=== PATIENT | male | born 1985 | race Hispanic/Latino ===

== ENCOUNTER 2023-06-03 14:50 | Emergency (ER) | payer SELFPAY ==
[2023-06-03 14:51] VITALS: BP 173/117; PULSE 95; RESP 16; TEMP 36.4; O2SAT 99; BMI 32.3
--- NOTE | 2023-06-03 17:01 | EDS_ITS ---
HPI History of Present Illness Chief Complaint: Rash Narrative Narrative: 38-year-old male presenting with rash on the back. He was told this was eczema previously. He was seen at in [place] where he lives. He states he works at the local [employer] and noticed the last couple days he had some itching and rash that has been worsened after he finishes steroids given to him a couple of weeks ago. Patient does admit that he scratches at the back area where his rashes secondary to it itching a lot. He states is starting to hurt from scratching it so much. Denies any systemic signs or symptoms. He has not followed up with dermatology. PFSH PFS Home Medications doxycycline monohydrate 100 mg capsule 100 mg PO BID #20 CAPSULES 06/03/23 [Rx Last Taken Unknown] prednisone 10 mg tablet 10 mg PO UD #33 tabs 06/03/23 [Rx Last Taken Unknown] Allergy/AdvReac Type Severity Reaction Status Date / Time No Known Allergies Allergy Verified 06/03/23 14:53 Social History Smoking Status: Never smoker ROS ROS ED Constitutional Constitutional ED: Denies chills, fever(s) or sweats Eyes Eyes: Denies blurry vision or change in vision ENT ENT ED: Denies ear pain or sore throat Cardiovascular Cardiovascular: Denies chest pain, palpitations or racing heartbeat Respiratory/Chest Respiratory/Chest: Denies cough, dyspnea or sputum Gastrointestinal Gastrointestinal: Denies abdominal pain, constipation, diarrhea, nausea or vomiting Genitourinary Genitourinary ED: Denies dysuria, hematuria or urinary frequency Musculoskeletal Musculoskeletal: Denies arthralgias, myalgias or neck pain Integumentary Reports Abrasions and rash; Denies abscess Neurologic Neurologic: Denies headache(s), paresthesias or weakness Psychiatric Psychiatric: Denies anxiety, depression, suicidal ideation or suicidal thoughts Endocrine Endocrinology: Denies polydipsia or polyuria EXAM Physical Exam Const Vital Signs: 06/03/23 14:51 Temperature 97.5 F L Temperature Source Temporal Pulse Rate 95 Respiratory Rate 16 Blood Pressure 173/117 H Blood Pressure Mean 135 Pulse Ox 99 Oxygen Delivery Method Room Air Positive well nourished General Appearance ED: NAD HEENT Reports moist mucous membranes Eyes PERRL and EOMs intact bilaterally Chest Wall inspection of chest normal Resp normal respiratory effort Cardio regular rate and regular rhythm Neuro oriented x3 and CN's II-XII intact bilaterally Sensorium / Orientation: alert Motor Exam: strength 5/5 throughout Psych mental status grossly normal Skin Skin Narrative: Nonspecific maculopapular rash noted to the back mostly on the upper back. There are excoriations consistent with his history of scratching. No crepitance. Drainage. MDM MDM MDM Narrative Medical decision making narrative: Presenting with rash. He was told this was eczema and after a burst of steroids recently he felt better but now he states his rash is coming back. Patient states that he thinks he needs more steroids. He has not had a dermatology follow-up. He states that his back is hurting worse. When I look at his back there is a lot of excoriations all over the maculopapular areas on the upper back. It is possible these could be secondarily infected although I do not see any obvious drainage and I do not feel any crepitance. Given the platelets the patient be started on prednisone and antibiotics. He is counseled on wound care. I given dermatology follow-up. Return precautions were discussed. Impression: 1. Atopic dermatitis 2. Cellulitis Discharge Plan Triage Chief Complaint: Rash ED Provider: Jan Segura Dx/Rx/DC Orders Instructions: ED Atopic Dermatitis (Adult) Prescriptions: New prednisone 10 mg tablet 10 mg PO UD Qty: 33 0RF Rx Instructions: Take 4 tablets daily for 3 days, then 3 daily for 3 days, then 2 daily for 3 days, then 1 a day for 3 days then 1 QOD for 3 doses. doxycycline monohydrate 100 mg capsule 100 mg PO BID Qty: 20 0RF Primary Care Provider: Care Physician,No Primary Referrals: Jameson Olivier MD [Med Staff - Project Management Analyst] - 3-5 Days Care Physician,No Primary [Primary Care Provider] - Disposition Disposition: Home, Self Care
[2023-06-03] MEDS: Doxycycline 100 MG CAPSULE PO (17:32)
[2023-06-03] MEDS: predniSONE 20 MG Tablet 60 MG PO (17:32)
== END 2023-06-03 17:34 | disposition home or self-care (01) ==
PROVIDERS: Emergency Provider Student in an Organized Health Care Education/Training Program; Visit Provider Student in an Organized Health Care Education/Training Program
DX: L20.89 Other atopic dermatitis (principal); L03.312 Cellulitis of back [any part except buttock and flank]
CPT/HCPCS: 99283